=== PATIENT | female | born 1950 | race Caucasian/White ===

== ENCOUNTER → 2023-08-15 | Outpatient (CLI) | payer MEDICARE, BC ==
[2023-08-15 09:57] LABS: INR 0.9 (<1.2); Partial Thromboplastin Time 22.4 sec (22.0-30.0); Prothrombin Time 10.1 sec (10.0-12.5)
[2023-08-15 15:41] LABS: Basophils # (A) 0.02 X 10*3/uL (0.00-0.10); Basophils % (A) 0.4 %; Eosinophils # (A) 0.06 X 10*3/uL (0.04-0.35); Eosinophils % (A) 1.2 %; HCT 43.6 % (37.2-46.3); HGB 14.2 g/dL (12.0-15.0); Lymphocytes # (A) 1.13 X 10*3/uL (0.90-5.00); Lymphocytes % (A) 22.9 %; MCH 31.7 pg (27.0-32.0); MCHC 32.6 g/dL (32.0-37.0); MCV 97.3 FL (80.0-97.0); Mean Platelet Volume 10.7 FL (9.5-12.2); Monocytes # (A) 0.67 X 10*3/uL (0.20-1.00); Monocytes % (A) 13.6 %; NRBC Per 100 WBC 0 X 10*3/uL (0.00-0.01); Neutrophils # (A) 3.04 X 10*3/uL (1.80-7.70); Neutrophils % (A) 61.7 %; Platelet Count 230 X 10*3/uL (140-440); RBC 4.48 X 10*6/uL (4.10-5.20); RDW 13.7 % (11.5-14.5); WBC 4.93 X 10*3/uL (4.50-10.00)
[2023-08-15 15:46] LABS: C Reactive Protein <0.30 mg/dL (0.00-0.80); Erythrocyte Sedimentation Rate 21 mm/Hr (0-30)
[2023-08-15 15:47] LABS: Albumin 4.2 g/dL (3.8-4.9); Immunoglobulin M 74.8 mg/dL (40.0-280.0); Protein, Total 7.7 g/dL (6.2-8.2)
[2023-08-16 11:10] LABS: APTT 37 Sec(s) (<43); Dilute Russell Viper Venom 33 Sec(s) (<44)
== END | disposition home or self-care (01) ==
LOC: LABWHC1 07:57
PROVIDERS: ATTEND Psychiatry & Neurology Neurology
DX: I63.9 Cerebral infarction, unspecified (principal); M35.00 Sjogren syndrome, unspecified
CPT/HCPCS: 36415; 82595; 84165; 85025; 85610; 85613; 85652; 85730; 86140; 86147; 86160; 86162; 86334

== ENCOUNTER → 2023-09-04 | Outpatient (CLI) | payer MEDICARE, BC ==
--- NOTE | 2023-10-11 10:56 | EM ---
30 DAY EVENT MONITOR REPORT: INDICATION: Cardiac arrhythmia I49.9. START DATE: 09/04/2023 END DATE: 10/04/2023 Patient wore the monitor for 27 days which is 87% of total time. FINDINGS: Overall [good] quality study. Patient's baseline rhythm was sinus tachycardia. Baseline heart rate was 104 beats per minute. There were no observed atrial fibrillation, atrial flutter or sustained ventricular rhythm. There were no observed sinus pauses which were more than 2 second long. There were occasional PACs and PVCs Patient symptoms correlation: Patient activated the monitor with no specifically reported symptoms. Most of these activations corresponded to normal sinus rhythm. Few instances it corresponded to sinus tachycardia. Homar Olvera MD, RPVI Cardiovascular Disease MTDD
== END | disposition home or self-care (01) ==
LOC: RADECHMAIN 07:36
PROVIDERS: ATTEND Psychiatry & Neurology Neurology
DX: I49.9 Cardiac arrhythmia, unspecified (principal); I49.3 Ventricular premature depolarization; R00.0 Tachycardia, unspecified
CPT/HCPCS: 93270

== ENCOUNTER 2023-11-29 08:46 | Day surgery (SDC) | payer MEDICARE, BC ==
[2023-11-29] MEDS: LACTATED RINGERS 1,000 ML IV SCH (09:49)
[2023-11-29] MEDS ORDERED: PROPOFOL 10 MG/ML 20 ML VIAL IV ONE (10:20)
[2023-11-29 10:21] VITALS: RESP 16; TEMP 98.6
--- NOTE | 2023-11-29 10:24 | P.GSHP ---
History of Present Illness H&P Date: 11/29/23 Chief Complaint: Positive colon guard This is a 73-year-old female who had a recent positive colon guard test. Patient presents today for colonoscopy. 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 History of Any Multi-Drug Resistant Organisms: None Reported Past Surgical History: Appendectomy, Joint Replacement, Orthopedic Surgery Additional Past Surgical History / Comment(s): Brain surgery for aneurysm, R total hip x 3, patellar surgery d/t fracture, nasal polyps removed, kidney stones removed, bilateral eye cataract removals with lens, colonoscopy. Past Anesthesia/Blood Transfusion Reactions: No Reported Reaction Smoking Status: Former smoker - Past Family History Mother Family Medical History: Cancer, Hypertension Father Family Medical History: Coronary Artery Disease (CAD) Medications and Allergies Home Medications Medication Instructions Recorded Confirmed Type Atorvastatin [Lipitor] 40 mg PO HS 11/27/23 11/29/23 History Biotin 1,000 mcg PO QAM 11/27/23 11/27/23 History Calcium Carbonate [Calcium] 600 mg PO BID 11/27/23 11/27/23 History Cholecalciferol [Vitamin D3 (25 25 mcg PO QAM 11/27/23 11/27/23 History Mcg = 1000 Iu)] Clopidogrel [Plavix] 75 mg PO QAM 11/27/23 11/27/23 History Cyclobenzaprine [Flexeril] 10 mg PO HS 11/27/23 11/29/23 History Multivit-Min/Iron/Folic/Lutein 1 tab PO QAM 11/27/23 11/27/23 History [Centrum Silver Women Tablet] Vit C/E/Zn/Coppr/Lutein/Zeaxan 1 cap PO BID 11/27/23 11/27/23 History [Preservision Areds 2 Softgel] cycloSPORINE 0.05% OPHTH SOLN 1 drop BOTH EYES BID 11/27/23 11/29/23 History [Restasis] traMADol HCL 50 mg PO Q6H PRN 11/27/23 11/29/23 History Allergies Allergy/AdvReac Type Severity Reaction Status Date / Time morphine AdvReac Nausea Verified 11/29/23 09:49 Surgical - Exam Vital Signs Temp Pulse Resp BP Pulse Ox 98.6 F 90 16 142/77 95 11/29/23 09:51 11/29/23 09:51 11/29/23 09:51 11/29/23 09:51 11/29/23 09:51 - General well developed, well nourished, no distress - ENT normal pinna - Neck no masses - Respiratory normal expansion - Cardiovascular Rhythm: regular - Abdomen Abdomen: soft, non tender Assessment and Plan Assessment: Positive colon guard test. We'll perform colonoscopy.
--- NOTE | 2023-11-29 10:41 | P.OP ---
Date of Procedure: 11/29/23 Preoperative Diagnosis: Positive colon guard Postoperative Diagnosis: Diverticulosis Procedure(s) Performed: colonoscopy Anesthesia: MAC Surgeon: Philip Chapman Pathology: none sent Condition: stable Disposition: PACU Description of Procedure: The patient's placed on the endoscopy table lateral position. She received IV sedation. Digital rectal exam was performed. This revealed no ebonized. The flexor clot scope was then placed patient anus and passed throughout the colon. Colonoscopy could not be advanced into the cecum secondary to tortuosity valve. Several times made to advance the colonoscope was some possible. At this point scope withdrawn. The visualized right colon and transverse colon appeared normal. In the descending and; there is mild diverticular changes. Scope was brought back the rectum and this appeared normal. Scope withdrawn for patient. Due to the patient's positive colon guard test patient was scheduled for a barium enema.
[2023-11-29] MEDS: LACTATED RINGERS 1,000 ML IV ONE (11:28)
[2023-11-29 11:32] VITALS: BP 110/70; PULSE 65
--- NOTE | 2023-11-29 14:47 | FL ---
EXAMINATION TYPE: FL barium enema w air contrast DATE OF EXAM: 11/29/2023 COMPARISON: NONE HISTORY: Failed colonoscopy TECHNIQUE: A double contrast barium enema study is performed. A total of 3 minutes and 13 seconds o f fluoroscopic time was utilized during procedure and 19 images obtained. Total dose area product (D AP) in uGy*m?, mGy*cm? (or similar): Not provided due to the equipment. FINDINGS: Level Vial Inspector And Tester view of the abdomen shows overall non-obstructive bowel gas pattern. Postsurgical ch letitia with acetabular protrusio of the right hip. Severe scoliosis with degenerative disc disease. Chr onic appearing deformity of the iliac wing. Due to the bowel prep utilized as retained fecal debris along the visualized portions of the colon. T his limits assessment for polyps. No sizable polyps identified. Redundancy of the sigmoid colon. Marked redundancy of the right colon with incomplete filling of the right colon due to significant extreme redundancy. IMPRESSION: 1. Limited exam of the right colon which could not be filled with contrast due to redundancy. Remaini ng portion of the colon demonstrates no definite abnormality as discussed above. Consider CT scan or virtual colonoscopy to assess the right colon.
== END 2023-11-29 12:51 | disposition home or self-care (01) ==
LOC: ORWHC2ENDO 08:46
PROVIDERS: ATTEND Surgery
DX: R19.5 Other fecal abnormalities (principal); E78.5 Hyperlipidemia, unspecified; N28.9 Disorder of kidney and ureter, unspecified; Z79.02 Long term (current) use of antithrombotics/antiplatelets; Z86.73 Personal history of transient ischemic attack (TIA), and cerebral infarction without residual deficits; Z87.891 Personal history of nicotine dependence; Z88.5 Allergy status to narcotic agent; Z90.49 Acquired absence of other specified parts of digestive tract; Z79.899 Other long term (current) drug therapy
CPT/HCPCS: 74280; 45378; J2704